=== PATIENT | female | born 1985 | race Caucasian/White ===

== ENCOUNTER 2024-08-21 09:33 | Outpatient (REF) | payer BC, SELFPAY ==
[2024-08-21 15:34] LABS: ALT 32 U/L (14-59); AST 40 U/L (15-37); Albumin 3.2 g/dL (3.4-5.0); Alkaline Phosphatase 80 U/L (46-116); Anion Gap 8.2 mmol/L (3-11); BUN 7 mg/dL (7-18); Bilirubin, Total 0.87 mg/dL (0.2-1.0); CO2 25.8 mmol/L (21.0-32.0); CREATININE 0.8 mg/dL (0.55-1.02); Calculated LDL 50 mg/dL (<100); Chloride 105 mmol/L (98-107); Cholesterol 152 mg/dL (<200); Estimated GFR 96.06 (mL/min/1.73m2); Glucose 120 mg/dL (74-106); HDL Cholesterol 92 mg/dL (40-60); Potassium 4.4 mmol/L (3.5-5.1); Sodium 139 mmol/L (136-145); Total Protein 7.2 g/dL (6.4-8.2); Triglyceride 50 mg/dL (<150)
== END 2024-08-21 09:34 | disposition home or self-care (01) ==
LOC: NCHCN 09:33
PROVIDERS: PCP Nurse Practitioner Family; Visit Provider Nurse Practitioner Family
DX: E11.9 Type 2 diabetes mellitus without complications (principal)
CPT/HCPCS: 80053; 80061; 83036

== ENCOUNTER 2024-08-29 18:16 | Outpatient (REF) | payer BC, SELFPAY ==
[2024-08-29 21:20] LABS: HCT 35.9 % (36.0-46.0); HGB 12.4 g/dL (11.2-15.7); MCH 37.6 pg (27.0-33.0); MCHC 34.5 % (32.0-36.0); MCV 109 fL (80-95); MPV 9.8 fL (8.0-11.0); Platelet Count 122 10^3/uL (130-400); RDW 11.8 % (11.7-14.6); RDW-SD 47.8 fL; WBC 5.74 10^3/uL (4.4-10.8)
[2024-08-29 21:41] LABS: Ferritin 138 ng/mL (8-252)
== END 2024-08-29 18:17 | disposition home or self-care (01) ==
LOC: NCHCN 18:16
PROVIDERS: PCP Nurse Practitioner Family; Visit Provider Nurse Practitioner Family
DX: D64.9 Anemia, unspecified (principal)
CPT/HCPCS: 85027; 82728

== ENCOUNTER 2024-11-28 17:05 | Outpatient (REF) | payer BC, SELFPAY ==
[2024-11-28 21:33] LABS: HCT 35.3 % (36.0-46.0); HGB 12.5 g/dL (11.2-15.7); MCH 37.2 pg (27.0-33.0); MCHC 35.4 % (32.0-36.0); Platelet Count 115 10^3/uL (130-400); RBC 3.36 10^6/uL (3.93-5.22); RDW 12.7 % (11.7-14.6); Reticulocyte 2.1 % (0.5-2.4); WBC 5.81 10^3/uL (4.4-10.8)
[2024-11-28 21:44] LABS: Prothrombin Time 10.1 sec (9.1-11.1)
[2024-11-28 21:51] LABS: ALT 49 U/L (14-59); AST 36 U/L (15-37); Albumin 3.5 g/dL (3.4-5.0); Alkaline Phosphatase 91 U/L (46-116); BUN 9 mg/dL (7-18); Bilirubin, Total 1.3 mg/dL (0.2-1.0); CREATININE 0.8 mg/dL (0.55-1.02); Calcium 9.3 mg/dL (8.5-10.1); Chloride 100 mmol/L (98-107); Estimated GFR 96.06 (mL/min/1.73m2); FREE T4 0.95 ng/dL (0.76-1.46); Glucose 159 mg/dL (74-106); Potassium 3.9 mmol/L (3.5-5.1); Sodium 136 mmol/L (136-145); TSH 1.98 uIU/mL (0.36-3.74); Total Protein 7.1 g/dL (6.4-8.2)
[2024-11-28 22:00] LABS: MCV 105 fL (80-95)
[2024-11-28 22:03] LABS: Microalb ug/mg Crea 12.1 ug/mg Cr
[2024-11-28 22:29] LABS: Iron 153 ug/dL (50-170); Total Iron Binding Capacity 329 ug/dL (250-450); Transferrin Sat 47 % (15-50)
== END 2024-11-28 17:06 | disposition home or self-care (01) ==
LOC: NCHCN 17:05
PROVIDERS: PCP Nurse Practitioner Family; Visit Provider Nurse Practitioner Family
DX: K76.0 Fatty (change of) liver, not elsewhere classified (principal); D64.9 Anemia, unspecified
CPT/HCPCS: 80053; 85027; 82043; 82570; 83540; 83550; 84439; 84443; 85045; 85610